=== PATIENT | male | born 1965 | race Caucasian/White ===

== ENCOUNTER 2019-06-30 14:17 | Emergency (ER) | payer SELFPAY ==
--- NOTE | 2019-06-30 14:23 | EDM.PDOCBH ---
ED HPI GENERAL MEDICAL PROBLEM - General Chief Complaint: Drug or Alcohol Abuse Stated Complaint: WITHDRAWL Time Seen by Provider: 06/30/19 14:17 Source of Information: Reports: Patient History Limitations: Reports: No Limitations - History of Present Illness INITIAL COMMENTS - FREE TEXT/NARRATIVE: HISTORY AND PHYSICAL: History of present illness: Patient is a 53-year-old male who presents to the emergency room today with complaints of alcohol withdrawal. He states he is a daily drinker, drinking at least 16 ounces of hard alcohol and several beers daily. States he has been drinking intermittently and likely daily over the past 10 years. Last drink was last evening, stating he "sick of feeling like crap". He does want to attempt to detox from alcohol. Complaining of nausea, vomiting, generalized abdominal pain and diarrhea over the past several hours. He does state that he has had a few syncopal episodes where he has hit his head over the past several days. He denies any loss of consciousness as a result of this. Generalized headache at this time. Patient denies any fever, chills, change in vision, neck pain or stiffness. Denies any chest pain, back pain, shortness of breath or cough. Denies any constipation or dysuria. Has not noted any blood in urine or stool. Patient has been eating and drinking appropriately. Review of systems: As per history of present illness and below otherwise all systems reviewed and negative. Past medical history: As per history of present illness and as reviewed below otherwise noncontributory. Surgical history: As per history of present illness and as reviewed below otherwise noncontributory. Social history: See social history for further information Family history: As per history of present illness and as reviewed below otherwise noncontributory. Physical exam: General: Developed and well-nourished 53-year-old male. Alert and oriented. Nontoxic appearing and in no acute distress. HEENT: Atraumatic, normocephalic, pupils equal and reactive bilaterally, negative for conjunctival pallor or scleral icterus, mucous membranes moist, TMs normal bilaterally, throat clear, neck supple, nontender, trachea midline. No drooling or trismus noted. No meningeal signs. No hot potato voice noted. Lungs: Clear to auscultation, breath sounds equal bilaterally, chest nontender. Heart: S1S2, regular rate and rhythm without overt murmur Abdomen: Soft, nondistended, nontender. Negative for masses or hepatosplenomegaly. Negative for costovertebral tenderness. Pelvis: Stable nontender. Skin: Intact, warm, dry. No lesions or rashes noted. Extremities: Atraumatic, moves all extremities per self without difficulty or deficits, negative for cords or calf pain. Neurovascular unremarkable. Neuro: Awake, alert, oriented. Cranial nerves II through XII unremarkable. Cerebellum unremarkable. Motor and sensory unremarkable throughout. Exam nonfocal. Notes: Lab work is unremarkable. Patient states that he does feel a little improvement with IV fluids. Patient does request to be admitted as he is hoping this will get him into an inpatient treatment program. He is aware we do not have the capacity to do inpatient alcohol treatment at our facility. Dr. Santiago is agreeable to come and talk with the patient and agrees that he can be discharged to home. Vital signs are stable. Patient will be discharged to home with information on outpatient alcohol treatment programs. Diagnostics: CBC, CMP, troponin, EKG, one view chest, head CT Therapeutics: Elizabeth Meyer Ativan Impression: Alcohol abuse Plan: 1. Please follow up with [facility] for outpatient alcohol treatment. 2. Return to the ED as needed and as discussed. Definitive disposition and diagnosis as appropriate pending reevaluation and review of above. - Related Data Allergies Allergy/AdvReac Type Severity Reaction Status Date / Time Penicillins Allergy Rash Verified 06/30/19 14:20 Home Meds: Home Meds Escitalopram [Lexapro] 20 mg PO DAILY 06/30/19 [History] Lisinopril 20 mg PO DAILY 06/30/19 [History] Omeprazole Magnesium [Prilosec Otc] 40 mg PO ASDIRECTED 06/30/19 [History] atorvaSTATin [Lipitor] 40 mg PO BEDTIME 06/30/19 [History] ED ROS GENERAL - Review of Systems Review Of Systems: ROS reveals no pertinent complaints other than HPI. ED EXAM, BEHAVIORAL HEALTH - Physical Exam Exam: See Below (See dictation) COURSE, BEHAVIORAL HEALTH COMP - Course Vital Signs: Last Vital Signs Temp 96.7 F 06/30/19 14:22 Pulse 71 06/30/19 16:05 Resp 18 06/30/19 16:05 BP 147/82 H 06/30/19 16:05 Pulse Ox 100 06/30/19 16:05 Orders, Labs, Meds: Active Orders 24 hr Category Date Time Status EKG Documentation Completion [RC] STAT Care 06/30/19 14:26 Active UA RFX MICHI AND CULT IF INDIC [URIN] Stat Lab 06/30/19 14:30 Ordered Laboratory Tests 06/30/19 06/30/19 Range/Units 14:31 14:31 WBC 8.22 (4.0-11.0) K/uL RBC 4.79 (4.50-5.90) M/uL Hgb 15.9 (13.0-17.0) g/dL Hct 47.0 (38.0-50.0) % MCV 98.1 H (80.0-98.0) fL MCH 33.2 H (27.0-32.0) pg MCHC 33.8 (31.0-37.0) g/dL RDW Std Deviation 46.9 (28.0-62.0) fl RDW Coeff of José Miguel 13 (11.0-15.0) % Plt Count 176 (150-400) K/uL MPV 9.70 (7.40-12.00) fL Neut % (Auto) 68.1 (48.0-80.0) % Lymph % (Auto) 22.1 (16.0-40.0) % [place] % (Auto) 7.5 (0.0-15.0) % Eos % (Auto) 1.6 (0.0-7.0) % Baso % (Auto) 0.7 (0.0-1.5) % Neut # (Auto) 5.6 (1.4-5.7) K/uL Lymph # (Auto) 1.8 (0.6-2.4) K/uL [place] # (Auto) 0.6 (0.0-0.8) K/uL Eos # (Auto) 0.1 (0.0-0.7) K/uL Baso # (Auto) 0.1 (0.0-0.1) K/uL Nucleated RBC % 0.0 /100WBC Nucleated RBCs # 0 K/uL Sodium 139 (136-148) mmol/L Potassium 4.0 (3.5-5.1) mmol/L Chloride 103 (98-107) mmol/L Carbon Dioxide 24.9 (21.0-32.0) mmol/L BUN 17 (7.0-18.0) mg/dL Creatinine 1.0 (0.8-1.3) mg/dL Est Cr Clr Drug Dosing 75.32 mL/min Estimated GFR (MDRD) > 60.0 ml/min Glucose 107 H (74-106) mg/dL Calcium 9.7 (8.5-10.1) mg/dL Total Bilirubin 1.0 (0.2-1.0) mg/dL AST 42 H (15-37) IU/L ALT 56 (14-63) IU/L Alkaline Phosphatase 63 (46-116) U/L Troponin I < 0.050 (0.000-0.056) ng/mL Total Protein 6.7 (6.4-8.2) g/dL Albumin 3.5 (3.4-5.0) g/dL Globulin 3.2 (2.6-4.0) g/dL Albumin/Globulin Ratio 1.1 (0.9-1.6) Lipase 168 (73-393) U/L Ethyl Alcohol < 3.0 mg/dL Medications Discontinued Medications Generic Name Dose Route Start Last Admin Trade Name Freq PRN Reason Stop Dose Admin Multivitamins/Minerals 10 ml/ 1,011.2 mls @ 999 mls/hr 06/30/19 14:26 14:46 Thiamine HCl 100 mg/ Folic IV 06/30/19 15:26 999 mls/hr Acid 1 mg/ Sodium Chloride ONETIME ONE Administration Lorazepam 1 mg 06/30/19 14:27 06/30/19 14:44 Ativan IVPUSH 06/30/19 14:28 1 mg ONETIME ONE Administration Ondansetron HCl 4 mg 06/30/19 14:27 06/30/19 14:42 Zofran IVPUSH 06/30/19 14:28 4 mg ONETIME ONE Administration Departure - Departure Time of Disposition: 16:04 Disposition: Home, Self-Care 01 Clinical Impression: Alcohol abuse - Discharge Information Instructions: Alcohol Use Disorder Referrals: PCP,Unknown [Primary Care Provider] - Forms: ED Department Discharge Additional Instructions: The following information is given to patients seen in the emergency department who are being discharged to home. This information is to outline your options for follow-up care. We provide all patients seen in our emergency department with a follow-up referral. The need for follow-up, as well as the timing and circumstances, are variable depending upon the specifics of your emergency department visit. If you don't have a primary care physician on staff, we will provide you with a referral. We always advise you to contact your personal physician following an emergency department visit to inform them of the circumstance of the visit and for follow-up with them and/or the need for any referrals to a consulting specialist. The emergency department will also refer you to a specialist when appropriate. This referral assures that you have the opportunity for follow-up care with a specialist. All of these measure are taken in an effort to provide you with optimal care, which includes your follow-up. Under all circumstances we always encourage you to contact your private physician who remains a resource for coordinating your care. When calling for follow-up care, please make the office aware that this follow-up is from your recent emergency room visit. If for any reason you are refused follow-up, please contact the [facility] Emergency Department at and asked to speak to the emergency department charge nurse. [facility] [address] [place] [id number] [facility] [address] [place] [id number] Crisis Line: 1. Please follow up with [facility] for outpatient alcohol treatment. 2. Return to the ED as needed and as discussed. - My Orders Last 24 Hours: My Active Orders 06/30/19 14:26 EKG Documentation Completion [RC] STAT 06/30/19 14:30 UA RFX MICHI AND CULT IF INDIC [URIN] Stat - Assessment/Plan Last 24 Hours: My Active Orders 06/30/19 14:26 EKG Documentation Completion [RC] STAT 06/30/19 14:30 UA RFX MICHI AND CULT IF INDIC [URIN] Stat
[2019-06-30] MEDS ORDERED: MVI, Adult with Vitamin K 10 ML, Thiamine 100 MG, Folic Acid 1 MG in Sodium Chloride 0.... IV ONE ×4 (14:26)
[2019-06-30] MEDS ORDERED: LORazepam 2 MG/ML SDV IVPUSH ONE (14:27)
[2019-06-30] MEDS ORDERED: Ondansetron 4 MG/2 ML SDV IVPUSH ONE (14:27)
[2019-06-30 15:17] LABS: BLOOD UREA NITROGEN,BUN 17 mg/dL (7.0-18.0); CARBON DIOXIDE,CO2 24.9 mmol/L (21.0-32.0); CHLORIDE,CL 103 mmol/L (98-107); GLUCOSE RANDOM 107 mg/dL (74-106); LIPASE 168 U/L (73-393); SODIUM,NA 139 mmol/L (136-148)
--- NOTE | 2019-06-30 15:19 | CT ---
Head CT Technique: Multiple axial sections through the brain were obtained. Intravenous contrast was not utilized. Comparison: No previous intracranial imaging. Findings: Ventricles along with basal cisterns and sulci over convexities are within normal limits for the patient's age. No abnormal parenchymal densities are seen. No evidence of intracranial hemorrhage. No midline shift or mass effect is seen. Moderate mucosal thickening is seen within the right maxillary sinus with mild mucosal thickening noted within the ethmoid sinuses. Nasal septal deviation is seen. Mastoid sinuses are clear. Atherosclerotic calcification is seen within the carotid siphon. No acute calvarial abnormality is seen. Impression: 1. Paranasal sinus findings which are most likely chronic. 2. No acute intracranial abnormality is appreciated. Diagnostic code #2 MTDD
--- NOTE | 2019-06-30 15:24 | CR ---
Chest: Frontal view of the chest was obtained. Comparison: No prior chest imaging. Heart size and mediastinum are normal. Lungs are clear. Slight deformity is noted within the right posterior eighth and ninth ribs compatible with old healed fractures. Additional old healed fracture seen within the posterior ninth and tenth ribs. No acute bony abnormality is seen. Impression: 1. Nothing acute is seen on frontal chest x-ray. Diagnostic code #2 MTDD
== END 2019-06-30 16:14 | disposition home or self-care (01) ==
LOC: MW.ED 14:17
DX: F10.239 Alcohol dependence with withdrawal, unspecified (principal); F10.229 Alcohol dependence with intoxication, unspecified; Y90.0 Blood alcohol level of less than 20 mg/100 ml; Z88.0 Allergy status to penicillin
CPT/HCPCS: 36415; 70450; 71045; 80053; 80320; 81003; 83690; 84484; 85025; 93005; 96365; 96375; 99285; J2060; J2405; J3411; J7040; G0480